=== PATIENT | female | born 1985 ===

== ENCOUNTER 2018-06-17 14:06 | Emergency (ER) | payer OTHER ==
[2018-06-17 14:30] VITALS: BP 124/86; PULSE 92; RESP 18; TEMP 98.1; O2SAT 98
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
[2018-06-17 15:57] LABS: URINE BILIRUBIN NEGATIVE (NEGATIVE); URINE CLARITY Clear (Clear); URINE COLOR YELLOW (YELLOW); URINE GLUCOSE (UA) NEGATIVE (Normal)
[2018-06-17 15:58] LABS: HCG,QUALITATIVE URINE POSITIVE (NEGATIVE); URINE BLOOD NEGATIVE (NEGATIVE); URINE LEUKOCYTE ESTERASE NEGATIVE Leu/uL (Negative); URINE PROTEIN NEGATIVE (NEGATIVE); URINE UROBILINOGEN 0.2 mg/dL (0.2-1.0)
== END 2018-06-17 16:21 | disposition home or self-care (01) ==
LOC: C.ER 14:06
DX: T74.21XA Adult sexual abuse, confirmed, initial encounter (principal); Y07.01 Husband, perpetrator of maltreatment and neglect; O26.899 Other specified pregnancy related conditions, unspecified trimester; Z3A.00 Weeks of gestation of pregnancy not specified